=== PATIENT | female | born 1985 | race Caucasian/White ===

== ENCOUNTER 2022-12-21 12:55 | Outpatient (CLI) | payer OTHER | END 2022-12-21 16:12 | disposition home or self-care (01) | LOC: PRENATAL 12:55 | PROVIDERS: ATTEND Obstetrics & Gynecology Maternal & Fetal Medicine | DX: O35.3XX0 Maternal care for (suspected) damage to fetus from viral disease in mother, not applicable or unspecified (principal); O09.529 Supervision of elderly multigravida, unspecified trimester; O34.219 Maternal care for unspecified type scar from previous cesarean delivery; O44.00 Complete placenta previa NOS or without hemorrhage, unspecified trimester; Z3A.20 20 weeks gestation of pregnancy ==

== ENCOUNTER 2023-03-20 15:42 | Outpatient (CLI) | payer OTHER | END 2023-03-20 15:43 | disposition home or self-care (01) | LOC: PRENATAL 15:42 | PROVIDERS: ATTEND Obstetrics & Gynecology Maternal & Fetal Medicine | DX: O26.849 Uterine size-date discrepancy, unspecified trimester (principal); O36.8199 Decreased fetal movements, unspecified trimester, other fetus; O09.529 Supervision of elderly multigravida, unspecified trimester; O34.219 Maternal care for unspecified type scar from previous cesarean delivery; Z3A.32 32 weeks gestation of pregnancy ==

== ENCOUNTER → 2023-04-09 | Outpatient (CLI) | payer OTHER | END | disposition home or self-care (01) | LOC: NST 21:57 | PROVIDERS: ATTEND Obstetrics & Gynecology | DX: Z34.83 Encounter for supervision of other normal pregnancy, third trimester (principal) ==

== ENCOUNTER 2023-05-02 08:03 | Inpatient (IN) | payer OTHER ==
[~2023-05-02] VITALS: Ht 167.6 cm; Wt 3.2 kg
[2023-05-02] MEDS ORDERED: PRENATAL TABLE1 EAC1 PO (09:47)
[2023-05-02] MEDS ORDERED: IRON18 MG PO (09:47)
[2023-05-02 09:49] LABS: HEMATOCRIT 32.5 % (36.0-45.00); HEMOGLOBIN 10.9 g/dL (12.0-15.00); MEAN CELL VOLUME 81.6 fL (80.00-100.00); MEAN CORPUSCULAR HEMOGLOBIN 27.4 pg (27.00-32.0); MEAN CORPUSCULAR HGB CONC 33.5 g/dl (32.0-36.0); PH,URINE 7.5 (5.0-8.0); PLATELET COUNT 219 K/uL (150-450); RED BLOOD COUNT 3.99 M/uL (4.00-6.00); RED CELL DISTRIBUTION WIDTH 16.8 % (11.5-14.5); URINE APPEARANCE Cloudy; URINE BILIRRUBIN Negative (NEGATIVE); URINE BLOOD Negative; URINE COLOR Yellow; URINE GLUCOSE Negative (NEGATIVE); URINE LEUKOCYTE Trace; URINE NITRATE Negative; URINE PROTEIN Negative (NEGATIVE); URINE UROBILINOGEN 0.2 E.U./dl
[2023-05-02 09:50] LABS: URINE BACTERIA 2781.9 uL (0.0-1933); URINE RBC 8.1 uL (0.0-20.8); URINE WBC 13.1 uL (0.0-23.2)
[2023-05-02 10:07] LABS: INR 0.94; PARTIAL THROMBOPLASTIN TIME 27.3 SECONDS (22.0-34.0); PROTHROMBIN TIME 9.9 SECONDS (9.0-11.5)
[2023-05-02 10:15] LABS: ALBUMIN 2.5 gm/dL (3.4-5.0); BILIRUBIN TOTAL 0.29 mg/dL (0.3-1.2); CALCIUM 8.2 mg/dL (8.5-10.1); CREATININE SERUM 0.38 mg/dL (0.55-1.02); GFR 191.62; GLOBULINA 3.5 G/DL (2.4-3.5); POTASSIUM 3.91 mEq/L (3.5-5.1)
[2023-05-03 07:01] LABS: HEMATOCRIT 29.8 % (36.0-45.00); HEMOGLOBIN 10.1 g/dL (12.0-15.00); MEAN CELL VOLUME 83.5 fL (80.00-100.00); MEAN CORPUSCULAR HEMOGLOBIN 28.1 pg (27.00-32.0); MEAN CORPUSCULAR HGB CONC 33.7 g/dl (32.0-36.0); PLATELET COUNT 204 K/uL (150-450); RED BLOOD COUNT 3.57 M/uL (4.00-6.00); RED CELL DISTRIBUTION WIDTH 16.4 % (11.5-14.5)
[2023-05-05] MEDS ORDERED: Tylenol #3 PO (11:08)
[2023-05-05] MEDS ORDERED: NAPR500T14 PO (11:08)
== END 2023-05-05 12:14 | disposition home or self-care (01) | DRG 788 ==
LOC: LDR 08:03 → OB/GYN 08:03 → LDR 09:15 → O/R 11:04 → OB/GYN 13:02
PROVIDERS: ADMIT Student in an Organized Health Care Education/Training Program; ATTEND Student in an Organized Health Care Education/Training Program
PROC: 4A1HXCZ Monitoring of Products of Conception, Cardiac Rate, External Approach (ICD-10-PCS; 2023-05-02)
PROC: 10D00Z1 Extraction of Products of Conception, Low, Open Approach (ICD-10-PCS; principal; 2023-05-02 09:00)
DX: O34.211 Maternal care for low transverse scar from previous cesarean delivery (principal); Z3A.38 38 weeks gestation of pregnancy; Z37.0 Single live birth; Z20.822 Contact with and (suspected) exposure to COVID-19

== ENCOUNTER 2023-12-16 09:55 | Outpatient (CLI) | payer OTHER ==
[~2023-12-16 09:55] MED LIST: IRON18 MG PO; NAPR500T14 PO; PRENATAL TABLE1 EAC1 PO; Tylenol #3 PO
== END 2023-12-16 09:56 | disposition home or self-care (01) ==
LOC: NUCLEAR 09:55
DX: R22.42 Localized swelling, mass and lump, left lower limb (principal); R22.41 Localized swelling, mass and lump, right lower limb

== ENCOUNTER → 2023-12-17 09:59 | Outpatient (CLI) | payer OTHER | END | disposition home or self-care (01) | LOC: NUCLEAR 09:59 | DX: R22.42 Localized swelling, mass and lump, left lower limb (principal); R22.41 Localized swelling, mass and lump, right lower limb ==

== ENCOUNTER 2024-01-28 11:06 | Outpatient (CLI) | payer OTHER | END 2024-01-28 11:11 | disposition home or self-care (01) | LOC: SONOGRAMA 11:06 | DX: R22.32 Localized swelling, mass and lump, left upper limb (principal); R22.31 Localized swelling, mass and lump, right upper limb; M25.531 Pain in right wrist ==